=== PATIENT | female | born 1965 | race Hispanic/Latino ===

== ENCOUNTER 2017-03-15 15:06 | Emergency (ER) | payer SELFPAY ==
[~2017-03-15] VITALS: Ht 170.2 cm; Wt 75.0 kg
[~2017-03-15 15:06] MED LIST: NAPROSYN500 MG PO; TRIUMEQ 600-50-1 TAB PO
[2017-03-15] MEDS ORDERED: FLEXERIL PO (16:36)
[2017-03-15] MEDS ORDERED: TRAMADOL HYDROC50 MG PO (16:36)
[2017-03-15] MEDS ORDERED: MOTRIN800 MG PO (16:36)
[2017-03-15 17:06] VITALS: BP 93/56
== END 2017-03-15 17:06 | disposition home or self-care (01) | DRG 562 ==
LOC: ED 15:06
DX: S93.601A Unspecified sprain of right foot, initial encounter (principal); S39.91XA Unspecified injury of abdomen, initial encounter; B20 Human immunodeficiency virus [HIV] disease; E03.9 Hypothyroidism, unspecified; F17.210 Nicotine dependence, cigarettes, uncomplicated; V13.4XXA Pedal cycle driver injured in collision with car, pick-up truck or van in traffic accident, initial encounter

== ENCOUNTER 2018-01-25 13:51 | Emergency (ER) | payer SELFPAY ==
[~2018-01-25] VITALS: Ht 170.2 cm; Wt 120.0 kg
[~2018-01-25 13:51] MED LIST changes: +FLEXERIL PO; +MOTRIN800 MG PO; +TRAMADOL HYDROC50 MG PO
[2018-01-25 16:13] VITALS: BP 115/70
== END 2018-01-25 16:20 | disposition home or self-care (01) | DRG 605 ==
LOC: ED 13:51
DX: S90.31XA Contusion of right foot, initial encounter (principal); E03.9 Hypothyroidism, unspecified; F17.210 Nicotine dependence, cigarettes, uncomplicated; W20.8XXA Other cause of strike by thrown, projected or falling object, initial encounter; Y93.89 Activity, other specified; Y92.511 Restaurant or cafe as the place of occurrence of the external cause; Y99.0 Civilian activity done for income or pay; Z21 Asymptomatic human immunodeficiency virus [HIV] infection status